=== PATIENT | male | born 1995 | race Caucasian/White ===

== ENCOUNTER 2022-01-01 03:52 | Emergency (ER) | payer BC ==
[~2022-01-01] VITALS: Ht 182.9 cm; Wt 63.6 kg
[2022-01-01 04:21] VITALS: BP 130/102
== END 2022-01-01 05:16 ==
LOC: ER 03:53
DX: F10.929 Alcohol use, unspecified with intoxication, unspecified (principal); F17.200 Nicotine dependence, unspecified, uncomplicated; Z02.89 Encounter for other administrative examinations; V98.8XXA Other specified transport accidents, initial encounter; Y93.89 Activity, other specified; Y92.89 Other specified places as the place of occurrence of the external cause; Y99.8 Other external cause status; Y90.9 Presence of alcohol in blood, level not specified
CPT/HCPCS: 99283